=== PATIENT | female | born 1985 | race Caucasian/White ===

== ENCOUNTER 2021-06-29 12:56 | Emergency (ER) | payer BC ==
[2021-06-29] MEDS ORDERED: Sodium Chloride 0.9% 10 ML Syringe FLUSH PRN (13:44)
[2021-06-29] MEDS ORDERED: Sodium Chloride 0.9% 2.5 ML Syringe FLUSH PRN (13:44)
[2021-06-29] MEDS ORDERED: Ondansetron 4 MG/2 ML SDV IVPUSH ONE (13:45)
[2021-06-29] MEDS ORDERED: Morphine 4 MG/ML Syringe IVPUSH ONE (13:45)
--- NOTE | 2021-06-29 13:50 | EDM.PDOC ---
ED HPI GENERAL MEDICAL PROBLEM - General Chief Complaint: Abdominal Pain Stated Complaint: ABDOMINAL PAIN Time Seen by Provider: 06/29/21 13:34 - History of Present Illness INITIAL COMMENTS - FREE TEXT/NARRATIVE: 36-year-old female history of ovarian cysts history of cystectomy in the past history of salpingectomy with history of heavy menses typically presenting with a normally timed but unusually severe and painful menses. Patient started menses 2 days ago over the last 24 hours it is worsened she is now going through around 8 tampons a day instead of her normal 5-6 its associated with a severe 10 out of 10 stabbing suprapubic and bilateral lower quadrant abdominal pain no nausea but some vomiting with a particular severe episode of pain. No dysuria no back or flank pain though she does have a history of kidney stones in the past. No diarrhea. No fever. Pain is severe and not relieved by ibuprofen no radiation of along the lower abdomen no alleviating factors abd Pain Score (Numeric/FACES): 10 - Related Data Allergies Allergy/AdvReac Type Severity Reaction Status Date / Time No Known Allergies Allergy Verified 06/29/21 13:46 Home Meds: Home Meds . [No Known Home Meds] 06/29/21 [History] ED ROS GENERAL - Review of Systems Review Of Systems: See Below Free Text/Narrative/Comment: General: No fever. Eyes: No vision problems. ENT: No sore throat. Neck: No neck stiffness. Respiratory: No shortness of breath. Cardiac: No chest pain. Gastrointestinal: Per HPI Urinary: No dysuria. Musculoskeletal: No myalgias/arthralgias. Neurologic: No headache. ED EXAM, GENERAL - Physical Exam Exam: See Below Free Text/Narrative:: General Appearance: No acute distress, appears comfortable Skin: No rash HEENT: Normocephalic/atraumatic, sclera anicteric, mucous membranes moist Neck: Normal range of motion Chest and Lungs: Bilateral breath sounds, clear to auscultation Cardiovascular: Regular rate and rhythm, no murmur Abdomen: Soft, bilateral lower quadrant and suprapubic abdominal tenderness without rebound or guarding Musculoskeletal: No edema or tenderness Neurologic: Awake, alert, no obvious deficits, moving all extremities Psychiatric: Appropriate, cooperative Course - Vital Signs Last Recorded V/S: Last Vital Signs Temp 97.8 F 06/29/21 13:47 Pulse 63 06/29/21 14:55 Resp 18 06/29/21 14:55 BP 126/72 06/29/21 14:55 Pulse Ox 97 06/29/21 14:55 - Orders/Labs/Meds Orders: Active Orders 24 hr Category Date Time Status Ketorolac [Toradol] Med 06/29/21 15:13 Once 15 mg IVPUSH ONETIME ONE Sodium Chloride 0.9% [Saline Flush] Med 06/29/21 13:44 Active 10 ml FLUSH ASDIRECTED PRN Sodium Chloride 0.9% [Saline Flush] Med 06/29/21 13:44 Active 2.5 ml FLUSH ASDIRECTED PRN Saline Lock Insert [OM.PC] Stat Oth 06/29/21 13:44 Ordered Medication Orders Sodium Chloride (Sodium Chloride 0.9% 10 Ml Syringe) 10 ml FLUSH ASDIRECTED PRN PRN Reason: Keep Vein Open Last Admin: 06/29/21 13:55 Dose: 10 ml Documented by: BRANDY Sodium Chloride (Sodium Chloride 0.9% 2.5 Ml Syringe) 2.5 ml FLUSH ASDIRECTED PRN PRN Reason: Keep Vein Open Last Admin: 06/29/21 13:55 Dose: 2.5 ml Documented by: BRANDY Labs: Laboratory Tests 06/29/21 06/29/21 06/29/21 Range/Units 13:40 13:40 14:21 WBC 13.19 H (4.0-11.0) K/uL RBC 4.51 (4.30-5.90) M/uL Hgb 12.7 (12.0-16.0) g/dL Hct 37.8 (36.0-46.0) % MCV 83.8 (80.0-98.0) fL MCH 28.2 (27.0-32.0) pg MCHC 33.6 (31.0-37.0) g/dL RDW Std Deviation 40.4 (28.0-62.0) fl RDW Coeff of Neftali 13 (11.0-15.0) % Plt Count 318 (150-400) K/uL MPV 10.20 (7.40-12.00) fL Neut % (Auto) 69.8 (48.0-80.0) % Lymph % (Auto) 21.3 (16.0-40.0) % [place] % (Auto) 6.8 (0.0-15.0) % Eos % (Auto) 1.6 (0.0-7.0) % Baso % (Auto) 0.5 (0.0-1.5) % Neut # (Auto) 9.2 H (1.4-5.7) K/uL Lymph # (Auto) 2.8 H (0.6-2.4) K/uL [place] # (Auto) 0.9 H (0.0-0.8) K/uL Eos # (Auto) 0.2 (0.0-0.7) K/uL Baso # (Auto) 0.1 (0.0-0.1) K/uL Nucleated RBC % 0.0 /100WBC Nucleated RBCs # 0 K/uL Sodium 140 (136-145) mmol/L Potassium 4.2 (3.5-5.1) mmol/L Chloride 105 (98-107) mmol/L Carbon Dioxide 26.8 (21.0-32.0) mmol/L BUN 8 (7.0-18.0) mg/dL Creatinine 0.8 (0.6-1.0) mg/dL Est Cr Clr Drug Dosing TNP Estimated GFR (MDRD) > 60.0 ml/min Glucose 88 (74-106) mg/dL Calcium 9.0 (8.5-10.1) mg/dL Total Bilirubin 0.7 (0.2-1.0) mg/dL AST 8 L (15-37) IU/L ALT 16 (14-63) IU/L Alkaline Phosphatase 78 (46-116) U/L Total Protein 7.3 (6.4-8.2) g/dL Albumin 4.1 (3.4-5.0) g/dL Globulin 3.2 (2.6-4.0) g/dL Albumin/Globulin Ratio 1.3 (0.9-1.6) HCG, Qual NEGATIVE (NEG) Meds: Medications Generic Name Dose Route Start Last Admin Trade Name Freq PRN Reason Stop Dose Admin Sodium Chloride 10 ml 06/29/21 13:44 06/29/21 13:55 Sodium Chloride 0.9% 10 Ml Syringe FLUSH 10 ml ASDIRECTED PRN Administration Keep Vein Open Sodium Chloride 2.5 ml 06/29/21 13:44 06/29/21 13:55 Sodium Chloride 0.9% 2.5 Ml Syringe FLUSH 2.5 ml ASDIRECTED PRN Administration Keep Vein Open Discontinued Medications Generic Name Dose Route Start Last Admin Trade Name Vijay PRN Reason Stop Dose Admin Morphine Sulfate 4 mg 06/29/21 13:45 06/29/21 13:54 Morphine 4 Mg/Ml Syringe IVPUSH 06/29/21 13:46 4 mg ONETIME ONE Administration Ondansetron HCl 4 mg 06/29/21 13:45 06/29/21 13:54 Ondansetron 4 Mg/2 Ml Sdv IVPUSH 06/29/21 13:46 4 mg ONETIME ONE Administration Departure - Departure Time of Disposition: 15:14 Disposition: Home, Self-Care 01 Condition: Good Clinical Impression: Dysmenorrhea - Discharge Information *PRESCRIPTION DRUG MONITORING PROGRAM REVIEWED*: Not Applicable *COPY OF PRESCRIPTION DRUG MONITORING REPORT IN PATIENT JAIMEE: Not Applicable Instructions: Dysmenorrhea Forms: ED Department Discharge Additional Instructions: Your labs today were normal. Your ultrasound showed a very small fibroid in your uterus. This can sometimes worsen bleeding or pain related to menses. Very rarely fibroids need to be excised by jig borer. However this is in the minority of cases. Your symptoms should improve as you progress through your menstrual cycle. If your pain becomes severe and not controllable at home or you have any other symptoms that concern you please call your doctor or return to the ER. If you do not have a jig borer you would follow-up with one of the 2 gynecology clinics listed below. [facility] [address] [place] [id number] [facility] [address] [place] [id number] The following information is given to patients seen in the emergency department who are being discharged to home. This information is to outline your options for follow-up care. We provide all patients seen in our emergency department with a follow-up referral. The need for follow-up, as well as the timing and circumstances, are variable depending upon the specifics of your emergency department visit. If you don't have a primary care physician on staff, we will provide you with a referral. We always advise you to contact your personal physician following an emergency department visit to inform them of the circumstance of the visit and for follow-up with them and/or the need for any referrals to a consulting specialist. The emergency department will also refer you to a specialist when appropriate. This referral assures that you have the opportunity for follow-up care with a specialist. All of these measure are taken in an effort to provide you with optimal care, which includes your follow-up. Under all circumstances we always encourage you to contact your private physician who remains a resource for coordinating your care. When calling for follow-up care, please make the office aware that this follow-up is from your recent emergency room visit. If for any reason you are refused follow-up, please contact the [facility] Emergency Departm ent at and asked to speak to the emergency department charge nurse. Sepsis Event Note (ED) - Focused Exam Vital Signs: Vital Signs Temp Pulse Resp BP Pulse Ox 06/29/21 14:55 63 18 126/72 97 06/29/21 14:21 58 L 18 138/81 99 06/29/21 13:47 97.8 F 72 18 140/76 100 - My Orders Last 24 Hours: My Active Orders 06/29/21 13:44 Sodium Chloride 0.9% [Saline Flush] 10 ml FLUSH ASDIRECTED PRN Sodium Chloride 0.9% [Saline Flush] 2.5 ml FLUSH ASDIRECTED PRN Saline Lock Insert [OM.PC] Stat 06/29/21 15:13 Ketorolac [Toradol] 15 mg IVPUSH ONETIME ONE - Assessment/Plan Last 24 Hours: My Active Orders 06/29/21 13:44 Sodium Chloride 0.9% [Saline Flush] 10 ml FLUSH ASDIRECTED PRN Sodium Chloride 0.9% [Saline Flush] 2.5 ml FLUSH ASDIRECTED PRN Saline Lock Insert [OM.PC] Stat 06/29/21 15:13 Ketorolac [Toradol] 15 mg IVPUSH ONETIME ONE Assessment:: 36-year-old female presenting with severe lower abdominal pain. Unusually painful menses would be a diagnosis of exclusion. Ectopic is a consideration early miscarriage is a consideration ovarian torsion is a consideration. Symptoms felt less likely to be nongynecologic in origin. Labs ultrasound U pending morphine Zofran for symptoms for now and will reassess. 1500: U preg is negative, labs with minimal leukocytosis but otherwise unremarkable. Pain improved to 3/10, patient describes this as manageable. US read remains pending. 1515: Ultrasound shows a very small fundal fibroid but is otherwise unremarkable patient's pain is starting to slowly worsen again and we will provide a dose of Toradol the patient last had anti-inflammatories around 8 AM. The importance of not taking more ibuprofen than written on the bottle was discussed and understood I do think dysmenorrhea is the cause of the patient's symptoms today given the otherwise negative work-up. Return precaution discussed and understood patient will follow up with her primary care doctor or jig borer as needed.
[2021-06-29 14:18] LABS: BLOOD UREA NITROGEN,BUN 8 mg/dL (7.0-18.0); CARBON DIOXIDE,CO2 26.8 mmol/L (21.0-32.0); CHLORIDE,CL 105 mmol/L (98-107); GLUCOSE RANDOM 88 mg/dL (74-106); POTASSIUM,K 4.2 mmol/L (3.5-5.1); SODIUM,NA 140 mmol/L (136-145)
--- NOTE | 2021-06-29 15:06 | US ---
INDICATION: Pelvic pain. History of cyst removal. Rule out torsion. TECHNIQUE: Transabdominal and transvaginal scanning was performed. Transvaginal scanning was performed to optimally evaluate the endometrium and adnexa. Ovarian blood flow was evaluated with color-flow and pulsed Doppler. COMPARISON: None. FINDINGS: The uterus is mildly enlarged but normal in shape. The uterus measures 8.8 x 5.7 x 5.6 cm. There appears to be a 6 mm intramural posterior uterine fundal fibroid. The endometrial stripe is normal in thickness at 5 mm. The ovaries are within normal limits. The right ovary measures 4.8 x 3.7 x 3.1 cm and left 2.7 x 2.3 x 1.7 cm. Ovarian blood flow is demonstrated with color-flow and pulsed Doppler. No adnexal mass is evident. No free fluid is demonstrated. IMPRESSION: 1. Normal ovaries. No evidence torsion. 2. Mildly enlarged uterus with intramural 6 mm posterior fundal fibroid. Dictated by Dago Garcia MD @ 06/29/2021 3:05:16 PM (Electronically Signed)
[2021-06-29] MEDS ORDERED: Ketorolac 30 MG/ML SDV IVPUSH ONE (15:13)
== END 2021-06-29 15:29 | disposition home or self-care (01) ==
LOC: MW.ED 12:56
DX: N94.6 Dysmenorrhea, unspecified (principal)
CPT/HCPCS: 36415; 76856; 80053; 84703; 85025; 96374; 96375; 99284; J1885; J2270; J2405

== ENCOUNTER 2021-11-27 08:10 | Observation (INO) | payer BC ==
[2021-11-26 09:11] LABS: BLOOD UREA NITROGEN,BUN 11 mg/dL (7.0-18.0); CARBON DIOXIDE,CO2 26.3 mmol/L (21.0-32.0); CHLORIDE,CL 101 mmol/L (98-107); GLUCOSE RANDOM 87 mg/dL (74-106); SODIUM,NA 139 mmol/L (136-145)
[~2021-11-27 08:10] MED LIST: Dexamethasone 4 MG/ML 5 ML MDV ONE; Dexmedetomidine 200 MCG/2 ML SDV ONE; Midazolam 1 MG/ML 2 ML SDV ONE; Ondansetron 4 MG/2 ML SDV ONE; Propofol 200 MG/20 ML SDV ONE; Rocuronium Bromide 50 MG/5 ML Syringe ONE; Scopolamine 1.5 MG Transdermal Patch ONE; Sugammadex Sodium 200 MG/2 ML VIAL ONE; fentaNYL 250 MCG/5 ML SDV ONE
[2021-11-27] MEDS ORDERED: Ondansetron 4 MG/2 ML SDV IVPUSH PRN ×2 (08:15→11:30)
[2021-11-27] MEDS ORDERED: Metoclopramide 10 MG/2 ML SDV IVPUSH PRN (08:15)
[2021-11-27] MEDS ORDERED: Naloxone 0.4 MG/ML SDV IVPUSH PRN (08:15)
[2021-11-27] MEDS ORDERED: Albuterol 0.083% 2.5 MG/3 ML Neb Soln NEB PRN (08:15)
[2021-11-27] MEDS ORDERED: Morphine 2 MG/ML SYRINGE IVPUSH PRN (08:15)
[2021-11-27] MEDS ORDERED: fentaNYL 100 MCG/2 ML SDV IVPUSH PRN (08:15)
[2021-11-27] MEDS ORDERED: Fluorescein 5 ML Vial ONE (08:41)
[2021-11-27] MEDS ORDERED: Methylene Blue 50 MG/10 ML Ampule ONE (08:41)
[2021-11-27] MEDS ORDERED: Bupivacaine 0.25% 10 ML SDV ONE (08:42)
[2021-11-27] MEDS ORDERED: Lactated Ringers 1,000 ML IV SCH (08:45)
[2021-11-27] MEDS ORDERED: Water For Injection, Sterile 20 ML ONE (09:13)
[2021-11-27] MEDS ORDERED: Ketorolac 30 MG/ML SDV ONE (10:08)
[2021-11-27] MEDS ORDERED: ePHEDrine 50 MG/ML SDV ONE (10:41)
[2021-11-27] MEDS ORDERED: Furosemide 40 MG/4 ML VIAL ONE (10:55)
[2021-11-27] MEDS ORDERED: Morphine 4 MG/ML VIAL IVPUSH PRN (11:30)
[2021-11-27] MEDS ORDERED: Promethazine 25 MG/ML SDV IM PRN (11:30)
[2021-11-27] MEDS ORDERED: Ketorolac 30 MG/ML SDV IVPUSH ONE (11:30)
[2021-11-27] MEDS ORDERED: Acetaminophen/oxyCODONE 325-5 MG Tab PO PRN (11:30)
[2021-11-27] MEDS: HYDROmorphone 1 MG/ML Syringe IVPUSH PRN ×2 (11:49→12:01)
[2021-11-27] MEDS: Ketorolac 30 MG/ML SDV IVPUSH PRN (15:44)
[2021-11-27] MEDS: Docusate Sodium 100 MG Cap PO SCH (20:43)
[2021-11-27] MEDS: Ibuprofen 800 MG Tab PO PRN (20:43)
[2021-11-27] MEDS: Acetaminophen/oxyCODONE 325-5 MG Tab PO PRN (23:26)
[2021-11-28] MEDS: Ketorolac 30 MG/ML SDV IVPUSH PRN (03:39)
[2021-11-28 07:20] LABS: BLOOD UREA NITROGEN,BUN 6 mg/dL (7.0-18.0); CARBON DIOXIDE,CO2 26.1 mmol/L (21.0-32.0); CHLORIDE,CL 103 mmol/L (98-107); GLUCOSE RANDOM 99 mg/dL (74-106); POTASSIUM,K 3.7 mmol/L (3.5-5.1); SODIUM,NA 139 mmol/L (136-145)
[2021-11-28] MEDS: Acetaminophen/oxyCODONE 325-5 MG Tab PO PRN (08:03)
[2021-11-28] MEDS: Docusate Sodium 100 MG Cap PO SCH (08:04)
[2021-11-28] MEDS: Ibuprofen 800 MG Tab PO PRN (11:31)
== END 2021-11-28 12:00 | disposition home or self-care (01) ==
LOC: MW.SDS 08:10 → MW.MS 11:30
PROVIDERS: ADMIT Obstetrics & Gynecology; ATTEND Obstetrics & Gynecology
DX: D25.2 Subserosal leiomyoma of uterus (principal); N80.1 Endometriosis of ovary; N80.0 Endometriosis of uterus; N83.02 Follicular cyst of left ovary; Z98.890 Other specified postprocedural states
CPT/HCPCS: 00944; 36415; 80048; 84703; 85025; 85027; 86850; 86900; 86901; A9270-GY; G0378; J0131; J0690; J1100; J1170; J1885; J1940; J2250; J2270; J2405; J2704; J3010; J3490; J7030; J7120